=== PATIENT | male | born 1995 | race Caucasian/White ===

== ENCOUNTER 2020-12-21 12:26 | Emergency (ER) | payer SELFPAY ==
[~2020-12-21] VITALS: Ht 175.3 cm; Wt 45.0 kg
--- NOTE | 2020-12-21 14:36 | PHYS DOC ---
Past Medical History Past Medical History: No Pertinent History Past Surgical History: No Surgical History Smoking Status: Current Every Day Smoker Alcohol Use: Occasionally General Adult EDM: Chief Complaint: UPPER EXTREMITY INJURY HPI: HPI: This is a pleasant 25-year-old male presenting the emergency department today after falling from a ladder while he was working on a tree on Friday. He had bruising with swelling but did not come in until today which is . His pain is throbbing aching nonradiating. He denies any muscle weakness or numbness. He has had bruising and has pain with moving his arm. He denies any other injuries. He did hit his head but did not pass out. Review of systems negative for chest pain shortness of breath neck pain or neck injury. All other review of systems negative ED course: 25-year-old male fell from a tree injured his right shoulder. X-ray obtained which shows an acute comminuted fracture dislocation of the humeral head. I spoke with our orthopedic surgeon Dr. Macias. He recommends transfer to higher level of care for surgical fixation. Patient is placed in a coaptation splint. The patient was then transferred to for further treatment and care. Review of Systems: Review of Systems: Constitutional: Denies fever or chills. [] Eyes: Denies change in visual acuity. [] HENT: Denies nasal congestion or sore throat. [] Respiratory: Denies cough or shortness of breath. [] Cardiovascular: Denies chest pain or edema. [] GI: Denies abdominal pain, nausea, vomiting, bloody stools or diarrhea. [] : Denies dysuria. [] Musculoskeletal: Denies back pain or joint pain. [] Integument: Denies rash. [] Neurologic: Denies headache, focal weakness or sensory changes. [] Endocrine: Denies polyuria or polydipsia. [] Lymphatic: Denies swollen glands. [] Psychiatric: Denies depression or anxiety. [] Heart Score: C/O Chest Pain: No Risk Factors: Risk Factors: DM, Current or recent (<one month) smoker, HTN, HLP, family history of CAD, obesity. Risk Scores: Score 0 - 3: 2.5% MACE over next 6 weeks - Discharge Home Score 4 - 6: 20.3% MACE over next 6 weeks - Admit for Clinical Observation Score 7 - 10: 72.7% MACE over next 6 weeks - Early Invasive Strategies Physical Exam: PE: Constitutional: Well developed, well nourished, no acute distress, non-toxic appearance. [] HENT: Normocephalic, atraumatic, bilateral external ears normal, oropharynx moist, no oral exudates, nose normal. [] Eyes: PERRLA, EOMI, conjunctiva normal, no discharge. [] Neck: Normal range of motion, no tenderness, supple, no stridor. [] Nontender cervical thoracic and lumbar spine without step-offs. No abrasions lacerations or ecchymosis to the cervical thoracic or lumbar spine. Cardiovascular:Heart rate regular rhythm, no murmur [] atraumatic Lungs & Thorax: Bilateral breath sounds clear to auscultation [] Abdomen: Bowel sounds normal, soft, no tenderness, no masses, no pulsatile masses. [] Atraumatic Skin: Warm, dry, no erythema, no rash. [] Back: No tenderness, no CVA tenderness. [] Extremities: The patient's right shoulder significantly swelling. There is ecchymosis a ssociated with the swelling. There are no lacerations to the shoulder.. He is tender to palpation in the shoulder joint with pain with passive range of motion of the shoulder. He has normal sensation in his hand with normal motor or sensory function of the hand and axillary sensory function. He denies any pain in the elbow or wrist distally. His other extremities are nontender with normal range of motion of the joints without any swelling. No abrasions lacerations ecchymosis otherwise. Neurologic: Mental status: Awake oriented and alert x3 Cranial nerves: Extraocular movements intact, eyebrows dirk bilaterally, smile symmetric, uvula elevation nl, shoulder shrug intact bilaterally, tongue protrusion normal Sensation: equal and normal in all extremities Strength: 5/5 in upper and lower extremities bilaterally Psychologic: Affect normal, judgement normal, mood normal. [] Current Patient Data: Vital Signs: Vital Signs Date Time Temp Pulse Resp B/P (MAP) Pulse Ox O2 Delivery O2 Flow Rate FiO2 12/21/20 13:38 98.2 95 20 131/91 (104) 98 Room Air 98.2 EKG: EKG: [] Radiology/Procedures: Radiology/Procedures: [] Course & Med Decision Making: Course & Med Decision Making Pertinent Labs and Imaging studies reviewed. (See chart for details) [] Dragon Disclaimer: Dragon Disclaimer: This electronic medical record was generated, in whole or in part, using a voice recognition dictation system. Departure Departure Impression: Primary Impression: Humeral fracture Additional Impression: Shoulder dislocation Disposition: ADMITTED INPT THIS HOSP Condition: STABLE Referrals: NO PCP (PCP) FRED CALIXTO MD Dec 21, 2020 14:36
[2020-12-21] MEDS ORDERED: IV NORMAL SALINE 1000ML BAG 1,000 ML IV ONE (14:45)
[2020-12-21] MEDS ORDERED: ONDANSETRON PF 4 MG/2 ML VIAL. IV ONE (14:45)
--- NOTE | 2020-12-21 15:01 | RAD ---
XR SHOULDER_RIGHT 2+ VIEWS History: Reason: RIGHT SHOULDER PAIN, pt fell from tree Friday / . Instructions: / History: Technique: 2 views right shoulder. Comparison: None. Findings: Acute comminuted right humeral head fracture with dislocation of the humeral head anteriorly in relat ion to the glenoid. There is overlying soft tissue swelling. Normal alignment of the acromioclavicula r joint. Impression: 1. Acute comminuted right humeral head fracture dislocation. Electronically signed by: Ivan Mandujano DO (12/21/2020 2:58 PM) [id number]
--- NOTE | 2020-12-21 15:01 | RAD ---
XR CHEST 1V History: Reason: RIGHT SHOULDER PAIN, pt fell from tree Friday / . Instructions: / History: Comparison: None. Findings: No consolidation or pleural effusion. Normal heart size. No pneumothorax. Right humeral fracture dislocation better characterized on dedicated right shoulder radiograph. Impression: 1. No acute cardiopulmonary process. Electronically signed by: Ivan Mandujano DO (12/21/2020 2:59 PM) [id number]
[2020-12-21] MEDS: fentaNYL PF VIAL 100 MCG/2 ML VIAL IV PRN ×3 (15:03→18:48)
[2020-12-21 18:07] VITALS: BP 140/95
== END 2020-12-21 19:05 | disposition admitted as inpatient to this hospital (09) ==
LOC: ER 12:26
DX: S42.301A Unspecified fracture of shaft of humerus, right arm, initial encounter for closed fracture (principal); S43.004A Unspecified dislocation of right shoulder joint, initial encounter; R07.89 Other chest pain; F17.200 Nicotine dependence, unspecified, uncomplicated; W11.XXXA Fall on and from ladder, initial encounter; Y93.89 Activity, other specified; Y92.89 Other specified places as the place of occurrence of the external cause; Y99.8 Other external cause status
CPT/HCPCS: 29105; 71045; 73030; 96361; 96374; 96375; 96376; 99285; J2405; J3010; J7030